=== PATIENT | male | born 2005 | race African-American/Black ===

== ENCOUNTER 2023-11-05 14:19 | Emergency (ER) | payer OTHER ==
[2023-11-05] MEDS ORDERED: Lidocaine 1% PF 5 ML VIAL ONE (15:23)
[2023-11-05] MEDS ORDERED: cefTRIAXone (ROCEPHIN) 500 MG VIAL ONE (15:23)
[2023-11-05] MEDS ORDERED: Azithromycin 250 MG TAB ONE (15:24)
[2023-11-06 21:06] LABS: Chlam.trachomatis by PCR,Urine Not Detected (NotDetected); GC N.gonorrhoeae PCR,UrineVOID Not Detected (NotDetected)
== END 2023-11-05 15:49 | disposition home or self-care (01) ==
LOC: ERS 14:19
DX: R36.9 Urethral discharge, unspecified (principal); F17.210 Nicotine dependence, cigarettes, uncomplicated
CPT/HCPCS: 87491; 87591; 96372; 99283; J0696

== ENCOUNTER 2025-07-18 10:25 | Emergency (ER) | payer SELFPAY | END 2025-07-18 11:25 | disposition home or self-care (01) | LOC: ERS 10:25 | DX: B34.9 Viral infection, unspecified (principal) | CPT/HCPCS: 87081; 87428; 87430; 99283 ==